=== PATIENT | female | born 1970 | race Caucasian/White ===

== ENCOUNTER 2017-01-09 21:45 | Inpatient (IN) | payer BC, OTHER ==
[~2017-01-09] VITALS: Ht 157.5 cm; Wt 78.0 kg
[~2017-01-09 21:45] MED LIST: IBUP-1050 PO
[2017-01-09] MEDS ORDERED: HYDROmorphone INJ 1 MG/ML SYR IV STA (22:40)
[2017-01-09] MEDS ORDERED: SODIUM CHLORIDE 0.9% 1000ML 1,000 ML IV STA (22:40)
[2017-01-09] MEDS ORDERED: ONDANSETRON INJ 2 MG/ML 2 ML VIAL IV STA (22:40)
[2017-01-09 22:51] LABS: BASO % 0.4 %; BASO ABS # 0.04 K/uL (0-0.2); COMPLETE YES; EOS % 2.4 %; HEMATOCRIT 37.4 % (37-47); IG% 0.2 %; LYMPH % 34.5 %; LYMPH ABS # 3.21 K/uL (1.2-3.4); MEAN CELL VOLUME 83.7 fL (80-100); MEAN CORPUSCULAR HEMOGLOBIN 27.1 pg (25-34); MEAN CORPUSCULAR HGB CONC 32.4 g/dl (32-36); MEAN PLATELET VOLUME 9.4 fL (7.4-10.4); MONO % 7.2 %; NEUT % 55.3 %; PLATELET COUNT 421 K/uL (130-400); RED BLOOD COUNT 4.47 M/uL (4.2-5.4)
[2017-01-09 23:04] LABS: ALT/SGPT 27 U/L (12-78); BLOOD UREA NITROGEN 9 mg/dl (7-18); BUN/CREATININE RATIO 11.3 (10-20); CALCIUM 8.9 mg/dl (8.5-10.1); CARBON DIOXIDE 25 mmol/L (21-32); CHLORIDE 109 mmol/L (98-107); CREATININE 0.82 mg/dl (0.60-1.20); GLUCOSE 107 mg/dl (70-99); POTASSIUM 3.5 mmol/L (3.5-5.1); SODIUM 141 mmol/L (136-145)
[2017-01-09 23:09] LABS: ALKALINE PHOSPHATASE 91 U/L (45-117); AST/SGOT 15 U/L (15-37)
[2017-01-10] VITALS (7 sets, daily range): BP systolic 122–130; BP diastolic 75–82; PULSE 73–98; TEMP 36.5–37; O2SAT 95–99; Ht 157.5 cm; Wt 78.0 kg
[2017-01-10] MEDS ORDERED: ONDANSETRON INJ 2 MG/ML 2 ML VIAL IV STA (00:18)
[2017-01-10] MEDS ORDERED: PROMETHAZINE HCL INJ 12.5 MG in SODIUM CHLORIDE 0.9% 50ML 50 ML IV STA (00:34)
[2017-01-10 03:49] LABS: URINE APPEARANCE CLEAR (CLEAR); URINE BILIRUBIN NEG (NEG); URINE COLOR YELLOW; URINE NITRITE NEG (NEG); URINE SPECIFIC GRAVITY 1.014 (1.000-1.030); UROBILINOGEN NEG (NEG); ZZUR CULT IF INDIC CLEAN CATCH NO
[2017-01-10 04:03] LABS: MANUAL MICROSCOPIC REQUIRED? NO; REVIEW REQ? NO
[2017-01-10] MEDS ORDERED: AMPICILLIN/SULBACTAM SOD INJ 3,000 MG in SODIUM CHLORIDE 0.9% 100ML 100 ML IV STA (05:06)
[2017-01-10 05:15] LABS: MAGNESIUM 1.7 mg/dl (1.8-2.4)
[2017-01-10] MEDS ORDERED: KETOROLAC TROMETHAMINE 30 MG/ML VIAL IV STA (05:43)
[2017-01-10] MEDS ORDERED: ONDANSETRON INJ 2 MG/ML 2 ML VIAL IV PRN ×2 (05:45→18:30)
[2017-01-10] MEDS ORDERED: ACETAMINOPHEN 325 MG TAB PO PRN (05:45)
[2017-01-10] MEDS ORDERED: KETOROLAC TROMETHAMINE 30 MG/ML VIAL IV PRN (05:45)
[2017-01-10] MEDS ORDERED: PROMETHAZINE HCL INJ 12.5 MG in SODIUM CHLORIDE 0.9% 50ML 50 ML IV PRN ×2 (05:45→18:30)
[2017-01-10] MEDS ORDERED: LORAZEPAM 2 MG/ML 1 ML VIAL IV PRN (05:45)
[2017-01-10] MEDS ORDERED: MoRPHine SULFATE 4 MG/ML 1 ML CARP\\VIAL IV PRN ×2 (05:45→20:00)
[2017-01-10] MEDS ORDERED: TRAMADOL HCL 50 MG TAB PO PRN (05:45)
[2017-01-10] MEDS ORDERED: AMPICILLIN/SULBACTAM CONSULT ACTIVE PRN ×2 (06:15)
[2017-01-10] MEDS ORDERED: LACTATED RINGER'S 1000ML 1,000 ML IV SCH (06:30)
[2017-01-10] MEDS ORDERED: MAGNESIUM SULFATE 1GM / D5W 1 GM in PREMIXED IN D5W 100 ML IV ONE (06:45)
[2017-01-10] MEDS ORDERED: LORAZEPAM INJ 0.5 MG in SYRINGE 0.75 ML IV PRN (06:45)
--- NOTE | 2017-01-10 07:05 | DIAGNOSTIC IMAGING REPORT ---
ULTRASOUND RIGHT UPPER QUADRANT ABDOMEN CLINICAL HISTORY: Right upper quadrant abdominal pain. Nausea. COMPARISON STUDY: Abdominal CT dated 06/26/2011. TECHNIQUE: Real-time, grayscale, and color flow sonography of the right upper quadrant of the abdomen was performed. Images are reviewed in the transverse and longitudinal planes. FINDINGS: Liver: The liver is enlarged, measuring over 20 cm in length. The liver demonstrates heterogeneously increased echotexture consistent with hepatic steatosis. There is no intrahepatic biliary ductal dilatation. The main portal vein is patent. Gallbladder: There are large shadowing calcified gallstones. Foci of adenomyomatosis are incidentally noted. The gallbladder is somewhat contracted. There is no significant gallbladder wall thickening. The gallbladder wall measures up to 5 mm, likely related to contraction. No pericholecystic fluid is identified. A sonographic Benitez's sign is reportedly absent. The common bile duct measures up to 0.4 cm in diameter. Pancreas: Visualized portions of the pancreatic head and body are normal in appearance. The splenic vein is patent. Right kidney: Survey images of the right kidney demonstrate normal size and echotexture. There is no hydronephrosis. Ascites: None. IMPRESSION: 1. Cholelithiasis without convincing sonographic evidence of acute cholecystitis. 2. Hepatomegaly and hepatic steatosis. Electronically signed by: Brian Pritchard M.D. 01/10/2017 7:04 AM Dictated Date/Time: 01/10/2017 7:02 AM
--- NOTE | 2017-01-10 07:30 | DIAGNOSTIC IMAGING REPORT ---
CT SCAN OF THE ABDOMEN AND PELVIS WITHOUT IV CONTRAST CLINICAL HISTORY: Upper abdominal pain. Nausea. Back pain. COMPARISON STUDY: Abdominal CT dated 06/26/2011. Abdominal ultrasound dated 01/10/2017. TECHNIQUE: CT scan of the abdomen and pelvis is performed from the lung bases to the proximal femora. Images are reviewed in the axial, sagittal, and coronal planes. IV contrast was not administered for this examination. Automated dose control exposure was utilized. A dose lowering technique was utilized adhering to the principles of ALARA. CT DOSE: 1067.13 mGy.cm FINDINGS: Lung bases: The heart is normal in size and without pericardial effusion. The lung bases are clear noting dependent atelectasis. There is a small hiatal hernia. Liver: The unenhanced liver is enlarged, measuring 23.6 cm in length. The liver demonstrates imaged attenuation consistent with hepatic steatosis. Fatty sparing is noted adjacent to the gallbladder fossa. There is no intrahepatic biliary ductal dilatation. Gallbladder: The gallbladder wall appears mildly thickened. No pericholecystic stranding or fluid is seen. Spleen: Normal in size and attenuation. A calcified splenic granuloma is incidentally noted. Pancreas: Unremarkable. Adrenal glands: Unremarkable. Kidneys: The unenhanced kidneys are normal in size and without hydronephrosis. There are no renal calculi identified. There is no evidence of contour deforming renal mass lesion. Abdominal vasculature: The abdominal aorta is normal in course and caliber. Bowel: The small bowel and colon are normal in course and caliber. There is mild colonic diverticulosis without CT evidence of acute diverticulitis. The proximal appendix is normal in appearance. The distal appendix appears ectatic and measures 13 mm in diameter. This demonstrates low attenuation centrally. No surrounding inflammatory change is seen. Peritoneum: There is no intraperitoneal free air or abdominal ascites. There is a fat-containing umbilical hernia. Lymphadenopathy: None. Pelvic viscera: The bladder, uterus, and adnexa are normal as visualized. Ovarian follicles are observed. Skeletal structures: No lytic or blastic lesions are seen. IMPRESSION: 1. The gallbladder wall appears thickened. Gallstones were seen by ultrasound. If there is clinical concern for acute cholecystitis then a nuclear hepatobiliary scan should be considered for further assessment. 2. Hepatomegaly and hepatic steatosis. 3. Mild colonic diverticulosis without CT evidence of acute diverticulitis. 4. The proximal appendix is normal in appearance. The distal appendix appears ectatic and measures up to 13 mm in diameter. There is no surrounding inflammation to indicate acute appendicitis. A mucocele of the appendix would be impossible to exclude. Surgical follow-up is recommended. 5. Additional findings as above. Electronically signed by: Brian Pritchard M.D. 01/10/2017 7:28 AM Dictated Date/Time: 01/10/2017 7:22 AM
--- NOTE | 2017-01-10 08:00 | HISTORY & PHYSICAL EXAMINATION ---
DATE OF ADMISSION: 01/10/2017 PRIMARY CARE DOCTOR: Dr. Austin CHIEF COMPLAINT: Abdominal pain. HISTORY OF PRESENT ILLNESS: History obtained from patient and records. Medical history is significant for hyperlipidemia. Recent confinement last 2011 for kidney stones. Last night, the patient had achy right-sided abdominal pain going to her chest and back with some nausea and some shortness of breath. No fever, no chills. No previous episodes. She just had spaghett for dinner. MEDICAL HISTORY: As above. SURGERIES: Shoulder surgery, gynecologic procedures, tonsillectomy, adenectomy and knee surgery. HOME MEDICATIONS: Include ibuprofen. ALLERGIES: TO SULFA AND CODEINE. FAMILY HISTORY: Heart disease and gallbladder disease. PERSONAL AND SOCIAL HISTORY: Nonsmoker. 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 REVIEW OF SYSTEMS: As per HPI, all other ROS negative. PHYSICAL EXAMINATION: VITAL SIGNS: Blood pressure was noted to be 125/77, pulse rate 84, RR 16, temperature 36.5 and sats 98 on room air. GENERAL: Slightly uncomfortable, in no respiratory distress and obese. She looks younger than stated age. SKIN: Normal color. HEENT: Eugenio Saenz palpebral conjunctivae. Dry mucosa. NECK: Short neck. LUNGS: Decreased breath sounds. HEART: RRR ABDOMEN: Right-sided upper and lower abdominal tenderness. EXTREMITIES: No edema. No tenderness. NEUROLOGIC: No gross focality. LABORATORIES: Hemoglobin was noted to be 12.1, hematocrit 7.4, white cell count 9.3 and platelets 421. Sodium 140, potassium 3.5, chloride 109, CO2 25, BUN 19 crea 0.8 glucose 107. LFTs, lipase were normal. D-dimer was normal. CT abdomen and pelvis initial read; thickened gallbladder, correlate for clinical cholecystitis; Dilated appendix secondary to volume averaging. Correlate for appendicitis. Trace pelvic fluid. ASSESSMENT: 1. Right-sided abdominal pain cholecystitis and/or appendicitis on initial CT read No sepsis. 2. Hyperlipidemia, not on medications. PLAN: GMF Analgesia Unasyn RE possible intra-abdominal infection Follow official CT results. Surgery consult RE abdominal pain, abnormal CT. N.p.o. until seen by surgery. DVT prophylaxis, Lovenox subQ. Full code. MTDD
--- NOTE | 2017-01-10 08:03 | DIAGNOSTIC IMAGING REPORT ---
CHEST ONE VIEW PORTABLE CLINICAL HISTORY: 46 years-old Female presenting with chest pain, back pain. TECHNIQUE: Portable semiupright AP view of the chest was obtained. COMPARISON: Correlation made to plain radiographs of the thoracic spine from 01/06/2013. FINDINGS: Cardiomediastinal silhouette normal. Mildly low lung volumes. Lungs and pleural spaces clear. Osseous structures and upper abdomen normal. IMPRESSION: 1. No acute cardiopulmonary disease. Electronically signed by: Kermit Reno M.D. 01/10/2017 8:02 AM Dictated Date/Time: 01/10/2017 8:00 AM
--- NOTE | 2017-01-10 08:07 | EMERGENCY ROOM VISIT NOTE ---
History First contact with patient: 22:24 Chief Complaint: CHEST PAIN Stated Complaint: CHOLECYSTITIS Nursing Triage Summary: Patient reports chest pain, back pain, and nausea for the past 1 hour. Denies cardiac history. History of Present Illness The patient is a 46 year old female who presents to the Emergency Room with complaints of chest pain, back pain and nausea. The patient states that she has been very slightly nauseous all day. She states that 30 minutes ago, she became very nauseous and then had sudden onset of excruciating pain across her upper abdomen, into her chest and into her back. She states that the pain is severe and radiates under the ribs. The pain in her back radiates up her entire spine. She rates her discomfort a 10/10. She has not taken any medications at home. The patient reports a history of kidney stones but is unsure if this feels similar. She denies fevers/chills, shortness of breath, vomiting, urinary symptoms or changes in bowel movements. Review of Systems A complete 10 point review of systems was reviewed with the patient with pertinent positives and negatives as per history of present illness. All else were negative. Past Medical/Surgical History Medical Problems: (1) ANXIETY STATE NOS (2) CALCULUS OF KIDNEY (3) CALCULUS OF URETER (4) Cholecystitis Social History Smoking Status: Never Smoker Alcohol Use: occasionally Marital Status: Housing Status: lives with family Occupation Status: employed, other Current/Historical Medications Scheduled PRN Ibuprofen (Advil), 400-600 MG PO Q6HR PRN PRN for Pain Physical Exam Vital Signs Date Time Temp Pulse Resp B/P (MAP) Pulse Ox O2 Delivery O2 Flow Rate FiO2 01/10/17 04:41 93 16 132/81 96 Room Air 01/10/17 03:42 36.5 90 16 136/79 95 Room Air 01/10/17 02:46 80 18 134/70 98 Room Air 01/10/17 00:12 68 22 136/89 98 Room Air 01/09/17 22:56 77 18 151/78 93 Room Air 01/09/17 22:08 87 01/09/17 22:05 98 Room Air 01/09/17 21:50 36.4 81 16 181/100 97 Room Air Pain Rating (0-10): 3.0 Physical Exam VITALS: Vitals are noted on the nurse's note and reviewed by myself. Vital signs stable. GENERAL: This is a 46-year-old female, in no acute distress, nondiaphoretic, well-developed well-nourished. MOUTH: Mucous membranes moist. NECK: Supple without nuchal rigidity. HEART: Regular rate and rhythm without murmurs gallops or rubs. LUNGS: Clear to auscultation bilaterally without wheezes, rales or rhonchi. ABDOMEN: Positive bowel sounds x 4. Soft, mild tenderness in the right upper quadrant and right middle abdomen. No guarding or rebound tenderness. NEURO: Patient was alert and oriented to person place and time. Medical Decision & Procedures ER Provider Diagnostic Interpretation: CT ABDOMEN & PELVIS: Gallbladder has a thick-walled appearance. No large calcified gallstones but possible cholelithiasis. Correlate for cholecystitis. Correlate with ultrasound, as indicated. No urolithiasis or hydronephrosis. The appendix is ectatic. Distal appendix is poorly evaluated secondary to volume averaging. Estimated caliber of the distal appendix about 9-10 mm. Correlate for any evidence of appendicitis. No significant periappendiceal inflammatory changes seen but volume averaging does limit evaluation. Trace pelvic free fluid. Diverticulitis. No diverticulitis. US GALLBLADDER: Cholelithiasis. Wall thickening gallbladder. Measures 5 mm. Adenomyomatosis with comet tail artifact. Liver prominent in size. Measures over 20 cm. Equivocal increased echogenicity of the liver but no steatosis is seen on recent CT. Normal caliber CBD. Radiologist: Vic Palencia MD Laboratory Results 01/09/17 22:05 Red Blood Count 4.47, Mean Corpuscular Volume 83.7, Mean Corpuscular Hemoglobin 27.1, Mean Corpuscular Hemoglobin Concent 32.4, Mean Platelet Volume 9.4, Neutrophils (%) (Auto) 55.3, Lymphocytes (%) (Auto) 34.5, Monocytes (%) (Auto) 7.2, Eosinophils (%) (Auto) 2.4, Basophils (%) (Auto) 0.4, Neutrophils # (Auto) 5.14, Lymphocytes # (Auto) 3.21, Monocytes # (Auto) 0.67, Eosinophils # (Auto) 0.22, Basophils # (Auto) 0.04 01/09/17 22:05 Test 01/09/17 22:05 01/10/17 01:40 01/10/17 02:52 White Blood Count 9.30 K/uL (4.8-10.8) Red Blood Count 4.47 M/uL (4.2-5.4) Hemoglobin 12.1 g/dL (12.0-16.0) Hematocrit 37.4 % (37-47) Mean Corpuscular Volume 83.7 fL (80-100) Mean Corpuscular Hemoglobin 27.1 pg (25-34) Mean Corpuscular Hemoglobin Concent 32.4 g/dl (32-36) Platelet Count 421 K/uL (130-400) Mean Platelet Volume 9.4 fL (7.4-10.4) Neutrophils (%) (Auto) 55.3 % Lymphocytes (%) (Auto) 34.5 % Monocytes (%) (Auto) 7.2 % Eosinophils (%) (Auto) 2.4 % Basophils (%) (Auto) 0.4 % Neutrophils # (Auto) 5.14 K/uL (1.4-6.5) Lymphocytes # (Auto) 3.21 K/uL (1.2-3.4) Monocytes # (Auto) 0.67 K/uL (0.11-0.59) Eosinophils # (Auto) 0.22 K/uL (0-0.5) Basophils # (Auto) 0.04 K/uL (0-0.2) RDW Standard Deviation 43.3 fL (36.4-46.3) RDW Coefficient of Variation 14.1 % (11.5-14.5) Immature Granulocyte % (Auto) 0.2 % Immature Granulocyte # (Auto) 0.02 K/uL (0.00-0.02) D-Dimer < 190 ug/L FEU (0-500) Anion Gap 7.0 mmol/L (3-11) Est Creatinine Clear Calc Drug Dose 82.0 ml/min Estimated GFR () 98.8 Estimated GFR (Non- 85.2 BUN/Creatinine Ratio 11.3 (10-20) Calcium Level 8.9 mg/dl (8.5-10.1) Total Bilirubin 0.3 mg/dl (0.2-1) Aspartate Amino Transf (AST/SGOT) 15 U/L (15-37) Alanine Aminotransferase (ALT/SGPT) 27 U/L (12-78) Alkaline Phosphatase 91 U/L (45-117) Total Protein 7.5 gm/dl (6.4-8.2) Albumin 3.7 gm/dl (3.4-5.0) Globulin 3.8 gm/dl (2.5-4.0) Albumin/Globulin Ratio 1.0 (0.9-2) Lipase 286 U/L (73-393) Urine Color YELLOW Urine Appearance CLEAR (CLEAR) Urine pH 5.0 (4.5-7.5) Urine Specific Mckinney 1.014 (1.000-1.030) Urine Protein NEG (NEG) Urine Glucose (UA) NEG (NEG) Urine Ketones NEG (NEG) Urine Occult Blood NEG (NEG) Urine Nitrite NEG (NEG) Urine Bilirubin NEG (NEG) Urine Urobilinogen NEG (NEG) Urine Leukocyte Esterase NEG (NEG) Urine Test NEG (NEG) Magnesium Level 1.7 mg/dl (1.8-2.4) Troponin I < 0.015 ng/ml (0-0.045) Medications Administered Medications (Trade) Dose Ordered Sig/Ian Route Start Time Stop Time Status Last Admin Dose Admin Sodium Chloride 1,000 ml @ 999 mls/hr Q1H1M STAT IV 01/09/17 22:40 01/09/17 23:40 DC 01/09/17 22:52 999 MLS/HR Ondansetron HCl (Zofran Inj) 4 mg NOW STAT IV 01/09/17 22:40 01/09/17 22:43 DC 01/09/17 22:52 4 MG Hydromorphone HCl (Dilaudid Inj) 1 mg NOW STAT IV 01/09/17 22:40 01/09/17 22:43 DC 01/09/17 22:52 1 MG Ondansetron HCl (Zofran Inj) 4 mg NOW STAT IV 01/10/17 00:18 01/10/17 00:19 DC 01/10/17 00:22 4 MG Promethazine HCl 12.5 mg/Sodium Chloride 50.5 ml @ 204 mls/hr NOW STAT IV 01/10/17 00:34 01/10/17 00:48 DC 01/10/17 00:51 204 MLS/HR Ampicillin Sodium/ Sulbactam Sodium 3000 mg/Sodium Chloride 108 ml @ 200 mls/hr NOW STAT IV 01/10/17 05:06 8/3/17 05:38 DC 01/10/17 05:26 200 MLS/HR ECG Rate (beats per minute): 91 Rhythm: normal sinus Findings: no acute ischemic change, no ectopy Change: no significant change ED Course The patient was evaluated as above. Labs were drawn and IV access was obtained. Patient was medicated with 1 mg Dilaudid IV, 4 mg Zofran and 1 L normal saline solution. Patient was complaining of persistent nausea and was medicated with an additional [address] was performed and read by statrad as above. Gallbladder Ultrasound was ordered. Patient was reevaluated and was still feeling nauseous. She was given 12.5 mg Phenergan IV. [facility]. They agreed to evaluate the patient for admission. Medical Decision Differential diagnosis includes cardiac disease, kidney stone, pulmonary embolism, cholecystitis, appendicitis, gastritis, colitis, among others. The patient is a 46-year-old female who presents today complaining of pain in her chest, upper abdomen and back. Patient was very uncomfortable on my initial examination and was given IV pain meds with improvement. Labs revealed no leukocytosis, anemia or concerning electrolyte abnormality. Kidney function is within normal limits. LFTs were within normal limits. Urinalysis was not suggestive of infection. Urine was negative. D-dimer was not elevated. Troponin [address] scan of the abdomen and pelvis for possible kidney stone was performed due to the patient's complaint of back pain and significant discomfort. This did not show any evidence of ureteral calculus , but did show findings suggestive of possible gallbladder disease. Of note, there was also dilation of the appendix but no periappendiceal stranding. Ultrasound of the gallbladder was then performed and did show gallbladder wall thickening. Given the patient's persistent nausea and tenderness in the right upper quadrant, do feel she needs to be admitted for further evaluation and surgical consultation. [facility] Medication Reconcilliation Current Medication List: was personally reviewed by me Blood Pressure Screening Patient's blood pressure: Elevated blood pressure Blood pressure disposition: Elevated BP felt to be situational Impression Primary Impression: Upper abdominal pain Departure Information Dispostion Admitted as an inpatient Condition FAIR Referrals No Doctor, Assigned (PCP) Forms HOME CARE DOCUMENTATION FORM, IMPORTANT VISIT INFORMATION Patient Instructions My [facility]
[2017-01-10] MEDS ORDERED: ENOXAPARIN 40 MG/0.4 ML SYR SQ SCH (09:00)
--- NOTE | 2017-01-10 10:31 | Surgery Consultation ---
Consultation Date of Consultation: Jan 10, 2017. Attending Physician: Lizandro Meraz M.D. Reason for Consultation: Right abdominal pain, abnormal CT scan (Coty Young PA-C) History of Present Illness Saskia is a 46 year-old female who presented to emergency department last evening with complaint of upper abdominal pain that began around 5:30 pm after dinner. States the pain was cramping in nature and then increased in severity. States she felt the pain start in her low back and radiate up her entire back and then into her chest under her ribs. States it felt like someone was sitting on her lower chest due to the pressure. She had spaghetti for dinner. She states she thought she had to go to restroom and then had sudden sweats. Never had anything like this before. Was concerned she was having a heart attack. Denies of any changes in her bowel habits, diarrhea, constipation, blood in stools, melena, or acholic stools. Last bowel movement was last night which was normal. Denies of any vomiting but did have associated nausea. Denies of any previous problems with gallbladder. Denies of any previous abdominal surgeries. No blood thinning agents. She had a CT scan of abdomen and pelvis which showed mild gallbladder wall thickening and distal appendix appeared ectactic dilated at 13 mm with no periappendiceal inflammation to suggest acute appendicitis She had an Ultrasound which showed large calcified gallstones, nonspecific gallbladder wall thickening, no pericholecystic fluid, contracted gallbladder with CBD measuring 4 mm. No sonographic evidence of Benitez's sign. Her labs showed normal WBC, LFTS and lipase (Coty Young PA-C) Past Medical/Surgical History Medical Problems: (1) Head injury Status: Acute (2) Trapezius strain Status: Acute (Coty Young PA-C) Social History Smoking Status: Never Smoker Marital Status: Housing Status: lives with family Occupation Status: employed, other (Coty Young PA-C) Allergies Coded Allergies: Codeine (Verified Allergy, Unknown, ., 01/09/17) Sulfa Antibiotics (Verified Allergy, Unknown, unknown, 01/09/17) Home Medications Scheduled PRN Ibuprofen (Advil), 400-600 MG PO Q6HR PRN PRN for Pain Current Inpatient Medications Current Inpatient Medications Medications (Trade) Dose Ordered Sig/Ian Route Start Time Stop Time Status Last Admin Dose Admin Lactated Ringer's 1,000 ml @ 75 mls/hr [id number] IV 01/10/17 06:30 02/09/17 06:29 01/10/17 06:43 75 MLS/HR Ketorolac Tromethamine (Toradol Inj) 30 mg Q6H PRN IV 01/10/17 05:45 01/15/17 05:44 Enoxaparin Sodium (Lovenox Inj) 40 mg Q24H SQ 01/10/17 09:00 02/09/17 08:59 Acetaminophen (Tylenol Tab) 650 mg Q4H PRN PO 01/10/17 05:45 02/09/17 05:44 Morphine Sulfate (MoRPHine SULFATE INJ) 4 mg Q3H PRN IV 01/10/17 05:45 01/24/17 05:44 Tramadol HCl (Ultram Tab) not relieved by tylenol @ Q6H PRN PO 01/10/17 05:45 02/09/17 05:44 Ondansetron HCl (Zofran Inj) 4 mg Q6H PRN IV 01/10/17 05:45 02/09/17 05:44 Promethazine HCl 12.5 mg/Sodium Chloride 50.5 ml @ 204 mls/hr Q6H PRN IV 01/10/17 05:45 02/09/17 05:44 Ampicillin Sodium/ Sulbactam Sodium (Consult) 1 ea UD PRN N/A 01/10/17 06:15 02/09/17 06:14 Lorazepam 0.5 mg/ Syringe 1 ml @ 1 mls/min Q4H PRN IV 01/10/17 06:45 02/09/17 06:44 (Coty Young ., PA-C) Review of Systems Constitutional: + sweats, No fever Cardiovascular: + chest pain, No palpitations Abdomen: + pain, + nausea, No vomiting, No diarrhea, No constipation, No GI bleeding Genitourinary - Female: No dysuria, No urinary frequency, No urinary urgency Hematologic / Lymphatic: No abnormal bleeding/bruising Integumentary: No rash (Coty Young, PA-C) Physical Exam Date Time Temp Pulse Resp B/P (MAP) Pulse Ox O2 Delivery O2 Flow Rate FiO2 01/10/17 08:23 36.6 77 16 129/75 (93) 97 Room Air 01/10/17 06:26 36.9 74 16 127/82 98 Room Air 01/10/17 05:56 36.5 84 16 125/77 98 01/10/17 05:30 84 16 125/77 98 Room Air 01/10/17 04:41 93 16 132/81 96 Room Air 01/10/17 03:42 36.5 90 16 136/79 95 Room Air 01/10/17 02:46 80 18 134/70 98 Room Air 01/10/17 00:12 68 22 136/89 98 Room Air 01/09/17 22:56 77 18 151/78 93 Room Air 01/09/17 22:08 87 01/09/17 22:05 98 Room Air 01/09/17 21:50 36.4 81 16 181/100 97 Room Air General Appearance: WD/WN, no apparent distress Head: normocephalic, atraumatic Eyes: sclerae normal ENT: hearing grossly normal Neck: trachea midline Respiratory/Chest: lungs clear, normal breath sounds, no respiratory distress, no accessory muscle use Cardiovascular: regular rate, rhythm, no murmur Abdomen/GI: normal bowel sounds, soft, no organomegaly, no pulsatile mass, + tenderness (In RUQ, negative benitez's sign, voluntary guarding of RUQ on deep palpation, no peritonitis or rigidity) Back: normal inspection Extremities/Musculoskelatal: normal inspection Neurologic/Psych: alert, oriented x 3 Skin: normal color, warm/dry, no rash (Coty Young ., PA-C) Laboratory Results Last 24 Hours Test 01/09/17 22:05 01/10/17 01:40 01/10/17 02:52 01/10/17 08:17 White Blood Count 9.30 K/uL Red Blood Count 4.47 M/uL Hemoglobin 12.1 g/dL Hematocrit 37.4 % Mean Corpuscular Volume 83.7 fL Mean Corpuscular Hemoglobin 27.1 pg Mean Corpuscular Hemoglobin Concent 32.4 g/dl Platelet Count 421 K/uL Mean Platelet Volume 9.4 fL Neutrophils (%) (Auto) 55.3 % Lymphocytes (%) (Auto) 34.5 % Monocytes (%) (Auto) 7.2 % Eosinophils (%) (Auto) 2.4 % Basophils (%) (Auto) 0.4 % Neutrophils # (Auto) 5.14 K/uL Lymphocytes # (Auto) 3.21 K/uL Monocytes # (Auto) 0.67 K/uL Eosinophils # (Auto) 0.22 K/uL Basophils # (Auto) 0.04 K/uL RDW Standard Deviation 43.3 fL RDW Coefficient of Variation 14.1 % Immature Granulocyte % (Auto) 0.2 % Immature Granulocyte # (Auto) 0.02 K/uL D-Dimer < 190 ug/L FEU Sodium Level 141 mmol/L Potassium Level 3.5 mmol/L Chloride Level 109 mmol/L Carbon Dioxide Level 25 mmol/L Anion Gap 7.0 mmol/L Blood Urea Nitrogen 9 mg/dl Creatinine 0.82 mg/dl Est Creatinine Clear Calc Drug Dose 82.0 ml/min Estimated GFR () 98.8 Estimated GFR (Non- 85.2 BUN/Creatinine Ratio 11.3 Random Glucose 107 mg/dl Calcium Level 8.9 mg/dl Total Bilirubin 0.3 mg/dl Aspartate Amino Transf (AST/SGOT) 15 U/L Alanine Aminotransferase (ALT/SGPT) 27 U/L Alkaline Phosphatase 91 U/L Troponin I < 0.015 ng/ml < 0.015 ng/ml Total Protein 7.5 gm/dl Albumin 3.7 gm/dl Globulin 3.8 gm/dl Albumin/Globulin Ratio 1.0 Lipase 286 U/L Urine Color YELLOW Urine Appearance CLEAR Urine pH 5.0 Urine Specific [place] 1.014 Urine Protein NEG Urine Glucose (UA) NEG Urine Ketones NEG Urine Occult Blood NEG Urine Nitrite NEG Urine Bilirubin NEG Urine Urobilinogen NEG Urine Leukocyte Esterase NEG Urine Test NEG Magnesium Level 1.7 mg/dl Prothrombin Time 11.0 SECONDS Prothromb Time International Ratio 1.0 CT SCAN OF THE ABDOMEN AND PELVIS WITHOUT IV CONTRAST CLINICAL HISTORY: Upper abdominal pain. Nausea. Back pain. COMPARISON STUDY: Abdominal CT dated 06/26/2011. Abdominal ultrasound dated 01/10/2017. TECHNIQUE: CT scan of the abdomen and pelvis is performed from the lung bases to the proximal femora. Images are reviewed in the axial, sagittal, and coronal planes. IV contrast was not administered for this examination. Automated dose control exposure was utilized. A dose lowering technique was utilized adhering to the principles of ALARA. CT DOSE: 1067.13 mGy.cm FINDINGS: Lung bases: The heart is normal in size and without pericardial effusion. The lung bases are clear noting dependent atelectasis. There is a small hiatal hernia. Liver: The unenhanced liver is enlarged, measuring 23.6 cm in length. The liver demonstrates imaged attenuation consistent with hepatic steatosis. Fatty sparing is noted adjacent to the gallbladder fossa. There is no intrahepatic biliary ductal dilatation. Gallbladder: The gallbladder wall appears mildly thickened. No pericholecystic stranding or fluid is seen. Spleen: Normal in size and attenuation. A calcified splenic granuloma is incidentally noted. Pancreas: Unremarkable. Adrenal glands: Unremarkable. Kidneys: The unenhanced kidneys are normal in size and without hydronephrosis. There are no renal calculi identified. There is no evidence of contour deforming renal mass lesion. Abdominal vasculature: The abdominal aorta is normal in course and caliber. Bowel: The small bowel and colon are normal in course and caliber. There is mild colonic diverticulosis without CT evidence of acute diverticulitis. The proximal appendix is normal in appearance. The distal appendix appears ectatic and measures 13 mm in diameter. This demonstrates low attenuation centrally. No surrounding inflammatory change is seen. Peritoneum: There is no intraperitoneal free air or abdominal ascites. There is a fat-containing umbilical hernia. Lymphadenopathy: None. Pelvic viscera: The bladder, uterus, and adnexa are normal as visualized. Ovarian follicles are observed. Skeletal structures: No lytic or blastic lesions are seen. IMPRESSION: 1. The gallbladder wall appears thickened. Gallstones were seen by ultrasound. If there is clinical concern for acute cholecystitis then a nuclear hepatobiliary scan should be considered for further assessment. 2. Hepatomegaly and hepatic steatosis. 3. Mild colonic diverticulosis without CT evidence of acute diverticulitis. 4. The proximal appendix is normal in appearance. The distal appendix appears ectatic and measures up to 13 mm in diameter. There is no surrounding inflammation to indicate acute appendicitis. A mucocele of the appendix would be impossible to exclude. Surgical follow-up is recommended. 5. Additional findings as above. ULTRASOUND RIGHT UPPER QUADRANT ABDOMEN CLINICAL HISTORY: Right upper quadrant abdominal pain. Nausea. COMPARISON STUDY: Abdominal CT dated 06/26/2011. TECHNIQUE: Real-time, grayscale, and color flow sonography of the right upper quadrant of the abdomen was performed. Images are reviewed in the transverse and longitudinal planes. FINDINGS: Liver: The liver is enlarged, measuring over 20 cm in length. The liver demonstrates heterogeneously increased echotexture consistent with hepatic steatosis. There is no intrahepatic biliary ductal dilatation. The main portal vein is patent. Gallbladder: There are large shadowing calcified gallstones. Foci of adenomyomatosis are incidentally noted. The gallbladder is somewhat contracted. There is no significant gallbladder wall thickening. The gallbladder wall measures up to 5 mm, likely related to contraction. No pericholecystic fluid is identified. A sonographic Benitez's sign is reportedly absent. The common bile duct measures up to 0.4 cm in diameter. Pancreas: Visualized portions of the pancreatic head and body are normal in appearance. The splenic vein is patent. Right kidney: Survey images of the right kidney demonstrate normal size and echotexture. There is no hydronephrosis. Ascites: None. IMPRESSION: 1. Cholelithiasis without convincing sonographic evidence of acute cholecystitis. 2. Hepatomegaly and hepatic steatosis. (Coty Young ., PA-C) Assessment & Plan 46 year-old female who presentd to ER with severe RUQ abdominal pain, back and chest pain that began suddenly last evening. Her symptoms are somewhat generalized however she did have fatty foods prior to her onset of pain and she continues to have RUQ tenderness on examination with evidence of gallstones and possible wall thickening on CT scan. Cholelithiasis - vitals stable - no leukocytosis - lfts and lipase within normal limits - CT scan showed thickened gallbladder, US showed stones however no evidence of acute cholecystitis - CT scan also showed distal appendix dilated at 13mm, Possible mucocele?? Plan: Given patients persistent RUQ abdominal pain and the findings on imaging, Dr. Gregory discussed laparoscopic cholecystectomy with appendectomy with patient. She would like to proceed. Informed of procedure and risks, informed consent obtained Keep patient NPO Continue IV fluids and IV pain management continue current medical management Dr. Gregory has seen and examined patient, agrees with above. (Coty Young ., PA-C) This patient has cholelithiasis and abdominal pain most of which has now resolved but she still has tenderness. I explained that she will need her gallbladder out at some point. She also has an abnormal appearing appendix without symptoms and no inflammatory change by CT. This is suspicious for a mucocele. I explained to her that we can do an appendectomy and cholecystectomy during the same procedure. I explained that would most likely be able to complete both procedures laparoscopically but that there is always a chance that we would need to convert to an open procedure. I explained the possible complications and answered her questions. She has signed a consent form. (Dakota Gregory M.D.)
--- NOTE | 2017-01-10 15:38 | Progress Note ---
Medicine Progress Note Date & Time of Visit: Jan 10, 2017 at 15:21. Subjective Pt was seen and examined Lying in bed with at bedside Pt said that she feels much better today she said that she does not have any abdominal pain she does not feel nauseated she wants to start on a diet since her pain is improved significantly denies any chest pain, palpitation, dizziness and SOB Objective Last 8 Hrs Date Time Temp Pulse Resp B/P (MAP) Pulse Ox O2 Delivery O2 Flow Rate FiO2 01/10/17 08:23 36.6 77 16 129/75 (93) 97 Room Air 01/10/17 08:15 Room Air Physical Exam: General- No acute distress Head- atraumatic Eyes- PERRL, EOMI ENT- oropharynx clear Neck- supple, no JVD Lungs- clear to auscultation Heart- regular rhythm; no murmur, Abdomen- normal bowel sounds, soft Extremities- no calf tenderness Neuro- alert, oriented x 3; PERRL, EOMI Skin- warm & dry Laboratory Results: Last 24 Hours Test 01/09/17 22:05 01/10/17 01:40 01/10/17 02:52 01/10/17 08:17 White Blood Count 9.30 K/uL Red Blood Count 4.47 M/uL Hemoglobin 12.1 g/dL Hematocrit 37.4 % Mean Corpuscular Volume 83.7 fL Mean Corpuscular Hemoglobin 27.1 pg Mean Corpuscular Hemoglobin Concent 32.4 g/dl Platelet Count 421 K/uL Mean Platelet Volume 9.4 fL Neutrophils (%) (Auto) 55.3 % Lymphocytes (%) (Auto) 34.5 % Monocytes (%) (Auto) 7.2 % Eosinophils (%) (Auto) 2.4 % Basophils (%) (Auto) 0.4 % Neutrophils # (Auto) 5.14 K/uL Lymphocytes # (Auto) 3.21 K/uL Monocytes # (Auto) 0.67 K/uL Eosinophils # (Auto) 0.22 K/uL Basophils # (Auto) 0.04 K/uL RDW Standard Deviation 43.3 fL RDW Coefficient of Variation 14.1 % Immature Granulocyte % (Auto) 0.2 % Immature Granulocyte # (Auto) 0.02 K/uL D-Dimer < 190 ug/L FEU Sodium Level 141 mmol/L Potassium Level 3.5 mmol/L Chloride Level 109 mmol/L Carbon Dioxide Level 25 mmol/L Anion Gap 7.0 mmol/L Blood Urea Nitrogen 9 mg/dl Creatinine 0.82 mg/dl Est Creatinine Clear Calc Drug Dose 82.0 ml/min Estimated GFR () 98.8 Estimated GFR (Non- 85.2 BUN/Creatinine Ratio 11.3 Random Glucose 107 mg/dl Calcium Level 8.9 mg/dl Total Bilirubin 0.3 mg/dl Aspartate Amino Transf (AST/SGOT) 15 U/L Alanine Aminotransferase (ALT/SGPT) 27 U/L Alkaline Phosphatase 91 U/L Troponin I < 0.015 ng/ml < 0.015 ng/ml Total Protein 7.5 gm/dl Albumin 3.7 gm/dl Globulin 3.8 gm/dl Albumin/Globulin Ratio 1.0 Lipase 286 U/L Urine Color YELLOW Urine Appearance CLEAR Urine pH 5.0 Urine Specific [place] 1.014 Urine Protein NEG Urine Glucose (UA) NEG Urine Ketones NEG Urine Occult Blood NEG Urine Nitrite NEG Urine Bilirubin NEG Urine Urobilinogen NEG Urine Leukocyte Esterase NEG Urine Test NEG Magnesium Level 1.7 mg/dl Prothrombin Time 11.0 SECONDS Prothromb Time International Ratio 1.0 Assessment & Plan Right sided abdominal pain CT abdomen showed gallbladder wall appears thickened. Gallstones were seen in ultrasound Pain improved Surgery on board Plan to go to OR for laparoscopic cholecystectomy and appendectomy today Continue IV unasyn for now Keep NPO pain control IVF Low Magnesium Mg replaced continue monitor mg level DVT px Hold lovenox due to plan to go to OR Will put on SCDs CODE STATUS FULL CODE Consultants: Surgery Current Inpatient Medications: Current Inpatient Medications Medications (Trade) Dose Ordered Sig/Ian Route Start Time Stop Time Status Last Admin Dose Admin Lactated Ringer's 1,000 ml @ 75 mls/hr [id number] IV 01/10/17 06:30 02/09/17 06:29 01/10/17 06:43 75 MLS/HR Ketorolac Tromethamine (Toradol Inj) 30 mg Q6H PRN IV 01/10/17 05:45 01/15/17 05:44 Enoxaparin Sodium (Lovenox Inj) 40 mg Q24H SQ 01/10/17 09:00 02/09/17 08:59 Future Hold Acetaminophen (Tylenol Tab) 650 mg Q4H PRN PO 01/10/17 05:45 02/09/17 05:44 Morphine Sulfate (MoRPHine SULFATE INJ) 4 mg Q3H PRN IV 01/10/17 05:45 01/24/17 05:44 Tramadol HCl (Ultram Tab) not relieved by tylenol @ Q6H PRN PO 01/10/17 05:45 02/09/17 05:44 Ondansetron HCl (Zofran Inj) 4 mg Q6H PRN IV 01/10/17 05:45 02/09/17 05:44 Promethazine HCl 12.5 mg/Sodium Chloride 50.5 ml @ 204 mls/hr Q6H PRN IV 01/10/17 05:45 02/09/17 05:44 Ampicillin Sodium/ Sulbactam Sodium (Consult) 1 ea UD PRN N/A 01/10/17 06:15 02/09/17 06:14 Lorazepam 0.5 mg/ Syringe 1 ml @ 1 mls/min Q4H PRN IV 01/10/17 06:45 02/09/17 06:44
[2017-01-10] MEDS: AMPICILLIN/SULBACTAM SOD INJ 3,000 MG in SODIUM CHLORIDE 0.9% 100ML 100 ML IV SCH ×2 (16:00→23:05)
[2017-01-10] MEDS ORDERED: HEPARIN SOD (PORCINE) 1000 UNIT/ML 10 ML VIAL ONE (17:49)
[2017-01-10] MEDS ORDERED: BUPIVACAINE 0.5 % 5 MG/1 ML MPF 30ML VIAL ONE (17:49)
[2017-01-10] MEDS ORDERED: CONRAY 60% 50 ML VIAL ONE (17:49)
[2017-01-10] MEDS ORDERED: CEFAZOLIN SOD 1 GM VIAL ONE (17:49)
[2017-01-10] MEDS ORDERED: GLYCOPYRROLATE INJ 0.2 MG/ML VIAL ONE (17:51)
[2017-01-10] MEDS ORDERED: ROCURONIUM BROMIDE 10 MG/ML 5 ML VIAL ONE (17:51)
[2017-01-10] MEDS ORDERED: DEXAMETHASONE SOD INJ 4 MG/ML VIAL ONE (17:51)
[2017-01-10] MEDS ORDERED: ONDANSETRON INJ 2 MG/ML 2 ML VIAL ONE (17:51)
[2017-01-10] MEDS ORDERED: NEOSTIGMINE METHYLSULFATE 5 MG/5 ML SYR ONE (17:51)
[2017-01-10] MEDS ORDERED: PROPOFOL IV EMULSION 10 MG/ML 20 ML VIAL IV ONE (17:51)
[2017-01-10] MEDS ORDERED: LIDOCAINE HCL 2% 2 ML VIAL (20MG/ML) ONE (17:51)
[2017-01-10] MEDS ORDERED: SCOPOLAMINE 1.5 MG TDSY TD ONE (17:51)
[2017-01-10] MEDS ORDERED: MIDAZOLAM HCL 1 MG/ML 2ML VIAL ONE (17:52)
[2017-01-10] MEDS ORDERED: FENTANYL CITRATE INJ 50 MCG/1 ML 2 ML VIAL ONE ×2 (17:52→18:42)
[2017-01-10] MEDS ORDERED: KETOROLAC TROMETHAMINE 30 MG/ML VIAL IV. PRN ×2 (18:30→20:30)
[2017-01-10] MEDS ORDERED: FLUMAZENIL 0.1 MG/1 ML 10 ML VIAL IV PRN (18:30)
[2017-01-10] MEDS ORDERED: ATROPINE SULFATE 0.1 MG/ML 5ML SYR IV PRN (18:30)
[2017-01-10] MEDS ORDERED: EpHEDrine SULFATE INJ 50 MG/ML AMP IV PRN (18:30)
[2017-01-10] MEDS ORDERED: NALOXONE HCL 0.4 MG/1 ML VIAL/CARP IV PRN (18:30)
--- NOTE | 2017-01-10 19:54 | [facility] Post Operative Brief Note ---
Immediate Operative Summary Operative Date Jan 10, 2017. Pre-Operative Diagnosis Cholelithiasis, Cholecystitis, Abnormal Appendix Post-Operative Diagnosis Cholelithiasis, Cholecystitis, Abnormal Appendix Procedure(s) Performed Laparoscopic Cholecystectomy, Laparoscopic Appendectomy Surgeon Dr. Gregory Chemical Pumper Surgeon(s) None Estimated Blood Loss 10 cc Findings See dictation Specimens A. Gallbladder and Contents B. Appendix Drains None Anesthesia General Complication(s) None Disposition Recovery Room / PACU
[2017-01-10] MEDS: LABETALOL HCL IV 5 MG/ML 20ML IV PRN ×3 (20:00→20:10)
[2017-01-10] MEDS ORDERED: ESMOLOL HCL 10 MG/ML 10 ML VIAL ONE (20:00)
[2017-01-10] MEDS ORDERED: OXYCODONE/ACETAMINOPHEN 5-325 TAB PO PRN (20:00)
[2017-01-10] MEDS: FENTANYL CITRATE INJ 50 MCG/1 ML 2 ML VIAL IV PRN ×2 (20:11→20:16)
[2017-01-10] MEDS ORDERED: NURSING VERBAL MED ORDER ONE ×2 (20:30→22:00)
--- NOTE | 2017-01-10 20:54 | Anesthesiology Progress Note ---
Anesthesia Post Op Note Date & Time Jan 10, 2017 at 20:54 Vital Signs Pain Intensity: 2 Vital Signs Past 12 Hours Date Time Temp Pulse Resp B/P (MAP) Pulse Ox O2 Delivery O2 Flow Rate FiO2 01/10/17 20:45 36.6 71 16 140/97 97 Nasal Cannula 2 01/10/17 20:35 66 14 153/88 97 Nasal Cannula 2 01/10/17 20:25 67 14 161/106 100 Nasal Cannula 2 01/10/17 20:15 67 14 187/106 98 Oxymask 10 01/10/17 20:05 71 14 187/104 98 Oxymask 10 01/10/17 19:55 37.1 87 14 183/106 99 Oxymask 10 01/10/17 17:47 36.8 16 133/86 (102) 97 Room Air 01/10/17 16:00 Room Air 01/10/17 15:25 36.8 81 16 124/79 (94) 95 Room Air Notes Mental Status: alert / awake / arousable, participated in evaluation Pt Amnestic to Procedure: Yes Nausea / Vomiting: adequately controlled Pain: adequately controlled Airway Patency, RR, SpO2: stable & adequate BP & HR: stable & adequate Hydration State: stable & adequate Anesthetic Complications: no major complications apparent
[2017-01-10] MEDS ORDERED: LABETALOL HCL IV 5 MG/ML 20ML IV ONE (21:00)
--- NOTE | 2017-01-10 23:32 | OPERATIVE REPORT ---
DATE OF OPERATION: 01/10/2017 PREOPERATIVE DIAGNOSIS: Cholelithiasis, cholecystitis, abnormal appendix. POSTOPERATIVE DIAGNOSIS: Same. PROCEDURE: Laparoscopic cholecystectomy and laparoscopic appendectomy. SURGEON: Dakota Gregory MD. FINDINGS: The gallbladder had multiple stones within its lumen. The cystic duct was long, but not dilated. The gallbladder did not appear to have a thickened wall. The liver was of normal size and contour. The appendix, in its distal 1-2 cm, was dilated and firm. There was no evidence of inflammatory response around it. There was no evidence of abscess or perforation. TECHNIQUE: The patient was given a general anesthetic and the area was prepped and draped in the usual sterile fashion. Transverse incision was made below the umbilicus, carried down through the subcutaneous tissue to the fascia which was grasped with 2 Nahid clamps and incised between. The peritoneum was identified, incised, and the introducers were placed bluntly. The abdomen was then insufflated to a pressure of 15 mmHg of carbon dioxide. The upper midline, mid clavicular and anterior axillary introducers were placed under direct vision through small skin incisions. Traction was placed on the gallbladder and the peritoneum was opened on the lateral side of the infundibulum and peeled down towards the common bile duct. The infundibulum was then dissected away from the liver on that lateral side. I then worked over the anterior surface of the infundibulum and neck and into the triangle of Calot, which was opened. The infundibulum was dissected away from the liver on the medial side allowing for better mobility. I then was able to identify the cystic duct and peel the connective tissue away from the lateral and medial sides, allowing me to establish a plane behind it and carefully identify the cystic duct gallbladder junction. Three clips were placed on the proximal cystic duct, 1 near the gallbladder and it was divided. Further dissection was then carried out and posterior to that were 2 tubular structures that were most likely 2 branches of the artery that were each isolated, clamped twice proximally and once near the gallbladder and it was divided. The gallbladder was then peeled off the liver bed using electrocautery. It was brought out through the upper midline incision within a bag, but I had to open the gallbladder and crush the stones in order to extract it within the bag when that was accomplished. That introducer was replaced and the liver edge was elevated. The subdiaphragmatic and subhepatic spaces were irrigated and the irrigation was removed. The gallbladder bed of the liver was inspected for bleeding and none was seen. The previously placed clips were intact. Attention was then turned to the appendectomy. The appendix was easily identified after rolling the cecum medially. It was elevated and I was able to easily establish a plane between the mesoappendix and the appendix at its base. The base was normal. The mesoappendix was divided with 2 firings of the Endo-HE. That allowed me to confirm that I was at the base of the appendix and the appendix was amputated using the Endo-HE. The appendix was placed into an Endobag and brought out through the umbilical incision with ease. That introducer was replaced and the right lower quadrant was irrigated and irrigation removed. The staple lines were inspected and there was no bleeding. Any irrigation in the pelvis was removed and the right upper quadrant was again inspected and any irrigation there was removed. The gallbladder bed of the liver was again inspected and there was no bleeding. The gas was allowed to escape and the introducers were removed. The fascia of the umbilical and upper midline introducer sites was closed with interrupted 0 Vicryl and the skin of all the incisions was closed with 4-0 Monocryl in either an interrupted or in a subcuticular fashion. The skin was anesthetized with 0.5% Marcaine. The skin was cleansed, dried, benzoin placed And Steri-Strips applied. The estimated blood loss was 10 mL. Sponge, needle and instrument counts were correct prior to closure. The patient tolerated the surgical procedure without complication and was transferred to recovery. I attest to the content of the Intraoperative Record and any orders documented therein. Any exception s are noted below.
[2017-01-10] MEDS: CHECK SCOPOLAMINE PATCH PLACEMENT SCH (23:52)
[2017-01-11 00:15] VITALS: BP 120/70; PULSE 97; TEMP 36.7; O2SAT 95
[2017-01-11] MEDS ORDERED: HYDROmorphone INJ 0.5 MG/0.5 ML SYR IV PRN (00:30)
[2017-01-11 03:17] VITALS: BP 116/64; PULSE 104; TEMP 37.1; O2SAT 95
[2017-01-11] MEDS: AMPICILLIN/SULBACTAM SOD INJ 3,000 MG in SODIUM CHLORIDE 0.9% 100ML 100 ML IV SCH ×4 (03:48→22:12)
[2017-01-11] MEDS: HYDROmorphone INJ 0.5 MG/0.5 ML SYR IV PRN ×3 (06:23→16:12)
[2017-01-11 06:47] LABS: BASO % 0.1 %; BASO ABS # 0.01 K/uL (0-0.2); COMPLETE YES; HEMATOCRIT 34.6 % (37-47); IG% 0.3 %; LYMPH % 8.1 %; LYMPH ABS # 0.96 K/uL (1.2-3.4); MEAN CELL VOLUME 83.8 fL (80-100); MEAN CORPUSCULAR HEMOGLOBIN 27.1 pg (25-34); MEAN CORPUSCULAR HGB CONC 32.4 g/dl (32-36); MEAN PLATELET VOLUME 9.2 fL (7.4-10.4); MONO % 3.7 %; NEUT % 87.8 %; PLATELET COUNT 343 K/uL (130-400); RED BLOOD COUNT 4.13 M/uL (4.2-5.4); WHITE BLOOD COUNT 11.86 K/uL (4.8-10.8)
[2017-01-11 07:28] LABS: BUN/CREATININE RATIO 7.5 (10-20); CALCIUM 8.6 mg/dl (8.5-10.1); CREATININE 0.91 mg/dl (0.60-1.20); POTASSIUM 4.2 mmol/L (3.5-5.1)
--- NOTE | 2017-01-11 07:29 | Surgery Progress Note ---
Surgery Progress Note Date of Service Jan 11, 2017. Subjective Post OP Day: 1 + pain controlled, + diet (Had a few crackers last night), No bowel movement, No nausea, No vomiting Objective Vital Signs: Date Time Temp Pulse Resp B/P (MAP) Pulse Ox O2 Delivery O2 Flow Rate FiO2 01/11/17 03:17 37.1 104 16 116/64 (81) 95 Room Air 01/11/17 00:15 36.7 97 16 120/70 (87) 95 Room Air 01/10/17 23:55 Room Air 01/10/17 23:18 36.5 98 16 122/75 (91) 99 Nasal Cannula 1.5 01/10/17 22:14 37.0 84 16 125/77 (93) 99 Nasal Cannula 2.0 01/10/17 21:43 36.8 79 16 129/79 (96) 99 Nasal Cannula 2.0 01/10/17 21:15 37.0 73 16 130/82 (98) 98 Nasal Cannula 2.0 01/10/17 21:15 Nasal Cannula 2.0 01/10/17 21:15 Nasal Cannula 2.0 01/10/17 20:45 36.6 71 16 140/97 97 Nasal Cannula 2 01/10/17 20:35 66 14 153/88 97 Nasal Cannula 2 01/10/17 20:25 67 14 161/106 100 Nasal Cannula 2 01/10/17 20:15 67 14 187/106 98 Oxymask 10 01/10/17 20:05 71 14 187/104 98 Oxymask 10 01/10/17 19:55 37.1 87 14 183/106 99 Oxymask 10 01/10/17 17:47 36.8 16 133/86 (102) 97 Room Air 01/10/17 16:00 Room Air 01/10/17 15:25 36.8 81 16 124/79 (94) 95 Room Air 01/10/17 08:23 36.6 77 16 129/75 (93) 97 Room Air 01/10/17 08:15 Room Air Abdomen: normal bowel sounds, non distended, soft, + tenderness (Incisional mostly) Incision(s): clean, dry, intact, no erythema, no drainage Laboratory Results: Results Past 24 Hours Test 01/10/17 08:17 01/11/17 06:17 Range/Units Prothrombin Time 11.0 9.0-12.0 SECONDS Prothromb Time International Ratio 1.0 0.9-1.1 White Blood Count 11.86 4.8-10.8 K/uL Red Blood Count 4.13 4.2-5.4 M/uL Hemoglobin 11.2 12.0-16.0 g/dL Hematocrit 34.6 37-47 % Mean Corpuscular Volume 83.8 80-100 fL Mean Corpuscular Hemoglobin 27.1 25-34 pg Mean Corpuscular Hemoglobin Concent 32.4 32-36 g/dl Platelet Count 343 130-400 K/uL Mean Platelet Volume 9.2 7.4-10.4 fL Neutrophils (%) (Auto) 87.8 % Lymphocytes (%) (Auto) 8.1 % Monocytes (%) (Auto) 3.7 % Eosinophils (%) (Auto) 0.0 % Basophils (%) (Auto) 0.1 % Neutrophils # (Auto) 10.41 1.4-6.5 K/uL Lymphocytes # (Auto) 0.96 1.2-3.4 K/uL Monocytes # (Auto) 0.44 0.11-0.59 K/uL Eosinophils # (Auto) 0.00 0-0.5 K/uL Basophils # (Auto) 0.01 0-0.2 K/uL RDW Standard Deviation 45.0 36.4-46.3 fL RDW Coefficient of Variation 14.7 11.5-14.5 % Immature Granulocyte % (Auto) 0.3 % Immature Granulocyte # (Auto) 0.04 0.00-0.02 K/uL Assessment & Plan S/P laparoscopic appendectomy and cholecystectomy Encourage eating Encouraged ambulation If tolerates diet and is having less pain can D/C to home later today
[2017-01-11 07:42] VITALS: BP 117/68; PULSE 91; TEMP 36.6; O2SAT 93
[2017-01-11] MEDS: CHECK SCOPOLAMINE PATCH PLACEMENT SCH ×2 (07:55→16:12)
--- NOTE | 2017-01-11 10:36 | Discharge Instructions ---
Discharge Instructions Date of Service Jan 11, 2017. Admission Reason for Admission: Cholecystitis Discharge Discharge Diagnosis / Problem: Same Discharge Goals Goal(s): Decrease discomfort, Improve function Activity Recommendations Activity Limitations: as noted below -You have Steri-strips (small white bandaids) in place, which will fall off on their own over time. If there are larger dressings over these, you may remove them in 24 hours. -After dressings are removed, you may shower. Do not scrub over the incisions - just wash gently with warm, soapy water. Do not soak, as in a bathtub or swimming pool -No lifting more than 20 lbs for 2 to 4 weeks -Do not drive until you are no longer taking narcotic pain medications and are completely pain free . Instructions / Follow-Up Instructions / Follow-Up -Please call to make a follow up appointment with Dr. Gregory in approximately 2 weeks Current Hospital Diet Patient's current hospital diet: Regular Diet Discharge Diet Recommended Diet: Regular Diet Procedures Procedures Performed: Laparoscopic Cholecystectomy, Laparoscopic Appendectomy Pending Studies Studies pending at discharge: yes List of pending studies: Gallbladder pathology - will be discussed at follow up appointment Medical Emergencies . Who to Call and When: Medical Emergencies: If at any time you feel your situation is an emergency, please call 911 immediately. . Non-Emergent Contact Non-Emergency issues call your: Primary Care Provider, Surgeon Call Non-Emergent contact if: temperature is above 101, your pain is not controlled, your pain is worsening, wound has increased drainage, wound has increased redness, wound has increased pain . "Provider Documentation" section prepared by Kavitha Lyles. . VTE Core Measure Inpt VTE Proph given/why not?: Enoxaparin (Lovenox)SQ, SCD's [place] Drug Monitoring Program Search Results: patient reviewed within database, no issues identified
--- NOTE | 2017-01-11 13:39 | Anesthesiology Progress Note ---
Anesthesia Post Op Note Date & Time Jan 11, 2017 at 13:36 Vital Signs Pain Intensity: 4.0 (4) Vital Signs Past 12 Hours Date Time Temp Pulse Resp B/P (MAP) Pulse Ox O2 Delivery O2 Flow Rate FiO2 01/11/17 08:15 Room Air 01/11/17 07:42 36.6 91 18 117/68 (84) 93 Room Air 01/11/17 03:17 37.1 104 16 116/64 (81) 95 Room Air Notes Mental Status: alert / awake / arousable, participated in evaluation Pt Amnestic to Procedure: Yes Nausea / Vomiting: see Notes Pain: adequately controlled Airway Patency, RR, SpO2: stable & adequate BP & HR: stable & adequate Hydration State: stable & adequate Anesthetic Complications: no major complications apparent patient complained of severe PONV. Reported having to have TIVA as anesthetic as it had controlled it in the past. She could not remember the name of it and did not get it yesterday. N/V had been improved after multiple medications given postoperatively. Demands TIVA in future.
[2017-01-11] MEDS ORDERED: HYDR2TAB48 PO (14:58)
--- NOTE | 2017-01-11 15:00 | Progress Note ---
Progress Note Date of Service Jan 11, 2017. Progress Note Evaluated patient at 2:30 pm Having moderate pain, not feeling great, would like to stay one more evening for pain control. Tolerated breakfast and lunch. No nausea or vomiting. Will have discharge instructions and prescription ready for discharge home tomorrow Dr. Mata covering this weekend
[2017-01-11 15:04] VITALS: BP 116/64; PULSE 86; TEMP 37.3; O2SAT 96
[2017-01-11] MEDS: ACETAMINOPHEN 500 MG TAB PO SCH ×2 (17:52→22:20)
[2017-01-11] MEDS: TRAMADOL HCL 50 MG TAB PO SCH ×2 (17:52→22:20)
--- NOTE | 2017-01-11 21:45 | Progress Note ---
Medicine Progress Note Date & Time of Visit: Jan 11, 2017 at 15:32. Subjective 46 yo F admitted with severe upper abdominal pain s/p lap dayanara and lap appy on 01/10/17 --denies nausea -reports pain and worsened distention -tolerating PO without an issue -asking to not send her home today because her pain is bad -denies CP, SOB or other symptoms at this time. Objective Last 8 Hrs Date Time Temp Pulse Resp B/P (MAP) Pulse Ox O2 Delivery O2 Flow Rate FiO2 01/11/17 15:04 37.3 86 16 116/64 (81) 96 Room Air 01/11/17 08:15 Room Air 01/11/17 07:42 36.6 91 18 117/68 (84) 93 Room Air Physical Exam: GEN: WNWD, in mild distress, alert and appropriate HEENT: NC/AT, PERRL, normal sclerae, MMM CARDIO: reg rate, S1/2 heard without m/g/r LUNGS: CTA bilaterally, no crackles, rales or wheezes, good diaphragmatic excursion ABD: soft, TTP in RLQ, incisions intact and closed with steristrips in place, no drainage, some expected bruising present. Non-distended, +BS EXTREMITY: RP and DP palpable 2+ bilat, no LE swelling or edema, extremities are warm and well-perfused NEURO: CN 2-12 grossly intact, sensation intact throughout MUSC: 5/5 strength throughout, no focal deficits SKIN: warm and dry and wounds as above. Laboratory Results: 01/11/17 06:17 Red Blood Count 4.13, Mean Corpuscular Volume 83.8, Mean Corpuscular Hemoglobin 27.1, Mean Corpuscular Hemoglobin Concent 32.4, Mean Platelet Volume 9.2, Neutrophils (%) (Auto) 87.8, Lymphocytes (%) (Auto) 8.1, Monocytes (%) (Auto) 3.7, Eosinophils (%) (Auto) 0.0, Basophils (%) (Auto) 0.1, Neutrophils # (Auto) 10.41, Lymphocytes # (Auto) 0.96, Monocytes # (Auto) 0.44, Eosinophils # (Auto) 0.00, Basophils # (Auto) 0.01 01/11/17 06:17 Test 01/09/17 22:05 01/10/17 01:40 01/10/17 02:52 01/10/17 08:17 D-Dimer < 190 ug/L FEU (0-500) Total Bilirubin 0.3 mg/dl (0.2-1) Aspartate Amino Transf (AST/SGOT) 15 U/L (15-37) Alanine Aminotransferase (ALT/SGPT) 27 U/L (12-78) Alkaline Phosphatase 91 U/L (45-117) Total Protein 7.5 gm/dl (6.4-8.2) Albumin 3.7 gm/dl (3.4-5.0) Globulin 3.8 gm/dl (2.5-4.0) Albumin/Globulin Ratio 1.0 (0.9-2) Lipase 286 U/L (73-393) Urine Color YELLOW Urine Appearance CLEAR (CLEAR) Urine pH 5.0 (4.5-7.5) Urine Specific [place] 1.014 (1.000-1.030) Urine Protein NEG (NEG) Urine Glucose (UA) NEG (NEG) Urine Ketones NEG (NEG) Urine Occult Blood NEG (NEG) Urine Nitrite NEG (NEG) Urine Bilirubin NEG (NEG) Urine Urobilinogen NEG (NEG) Urine Leukocyte Esterase NEG (NEG) Urine Test NEG (NEG) Troponin I < 0.015 ng/ml (0-0.045) Prothrombin Time 11.0 SECONDS (9.0-12.0) Prothromb Time International Ratio 1.0 (0.9-1.1) Test 01/11/17 06:17 White Blood Count 11.86 K/uL (4.8-10.8) Red Blood Count 4.13 M/uL (4.2-5.4) Hemoglobin 11.2 g/dL (12.0-16.0) Hematocrit 34.6 % (37-47) Mean Corpuscular Volume 83.8 fL (80-100) Mean Corpuscular Hemoglobin 27.1 pg (25-34) Mean Corpuscular Hemoglobin Concent 32.4 g/dl (32-36) Platelet Count 343 K/uL (130-400) Mean Platelet Volume 9.2 fL (7.4-10.4) Neutrophils (%) (Auto) 87.8 % Lymphocytes (%) (Auto) 8.1 % Monocytes (%) (Auto) 3.7 % Eosinophils (%) (Auto) 0.0 % Basophils (%) (Auto) 0.1 % Neutrophils # (Auto) 10.41 K/uL (1.4-6.5) Lymphocytes # (Auto) 0.96 K/uL (1.2-3.4) Monocytes # (Auto) 0.44 K/uL (0.11-0.59) Eosinophils # (Auto) 0.00 K/uL (0-0.5) Basophils # (Auto) 0.01 K/uL (0-0.2) RDW Standard Deviation 45.0 fL (36.4-46.3) RDW Coefficient of Variation 14.7 % (11.5-14.5) Immature Granulocyte % (Auto) 0.3 % Immature Granulocyte # (Auto) 0.04 K/uL (0.00-0.02) Anion Gap 9.0 mmol/L (3-11) Est Creatinine Clear Calc Drug Dose 73.9 ml/min Estimated GFR () 87.1 Estimated GFR (Non- 75.1 BUN/Creatinine Ratio 7.5 (10-20) Calcium Level 8.6 mg/dl (8.5-10.1) Magnesium Level 2.0 mg/dl (1.8-2.4) Last 24 Hours Test 01/11/17 06:17 White Blood Count 11.86 K/uL Red Blood Count 4.13 M/uL Hemoglobin 11.2 g/dL Hematocrit 34.6 % Mean Corpuscular Volume 83.8 fL Mean Corpuscular Hemoglobin 27.1 pg Mean Corpuscular Hemoglobin Concent 32.4 g/dl Platelet Count 343 K/uL Mean Platelet Volume 9.2 fL Neutrophils (%) (Auto) 87.8 % Lymphocytes (%) (Auto) 8.1 % Monocytes (%) (Auto) 3.7 % Eosinophils (%) (Auto) 0.0 % Basophils (%) (Auto) 0.1 % Neutrophils # (Auto) 10.41 K/uL Lymphocytes # (Auto) 0.96 K/uL Monocytes # (Auto) 0.44 K/uL Eosinophils # (Auto) 0.00 K/uL Basophils # (Auto) 0.01 K/uL RDW Standard Deviation 45.0 fL RDW Coefficient of Variation 14.7 % Immature Granulocyte % (Auto) 0.3 % Immature Granulocyte # (Auto) 0.04 K/uL Sodium Level 141 mmol/L Potassium Level 4.2 mmol/L Chloride Level 109 mmol/L Carbon Dioxide Level 23 mmol/L Anion Gap 9.0 mmol/L Blood Urea Nitrogen 7 mg/dl Creatinine 0.91 mg/dl Est Creatinine Clear Calc Drug Dose 73.9 ml/min Estimated GFR () 87.1 Estimated GFR (Non- 75.1 BUN/Creatinine Ratio 7.5 Random Glucose 126 mg/dl Calcium Level 8.6 mg/dl Magnesium Level 2.0 mg/dl Assessment & Plan 46 yo F admitted with severe upper abdominal pain s/p lap dayanara and lap appy on 01/10/17 1. Post-op state-POD 1, was feeling well this morning but had some dilaudid on board. Started to have significant pain and bloating as the afternoon wore on. Tramadol ineffective by itself, however, she is willing to try a regimen of Tylenol/Tramadol scheduled in lieu of Po dilaudid (mutliple intolerances of oxycodone, hydrocodone, and codeine medications in the past). She is tolerating PO. Incisions are closed and abdomen is soft. Aprpeciate surgery recs. Cont Unasyn through today and then will likely discontinue unless otherwise requested by surgery. 2. Hyperlipidemia-diet controlled 3. Leukocytosis- mild likely 2/2 inflammation vs abby-operative steroids. DVT proph: Lovenox SQ FULL CODE Dispo-to home poss tomorrow or in 2 days time. DO [facility] Hospitalist Consultants: Surgery Current Inpatient Medications: Current Inpatient Medications Medications (Trade) Dose Ordered Sig/Ian Route Start Time Stop Time Status Last Admin Dose Admin Ketorolac Tromethamine (Toradol Inj) 30 mg Q6H PRN IV 01/10/17 05:45 01/15/17 05:44 Enoxaparin Sodium (Lovenox Inj) 40 mg Q24H SQ 01/10/17 09:00 02/09/17 08:59 Future Hold Acetaminophen (Tylenol Tab) 650 mg Q4H PRN PO 01/10/17 05:45 02/09/17 05:44 Tramadol HCl (Ultram Tab) not relieved by tylenol @ Q6H PRN PO 01/10/17 05:45 02/09/17 05:44 8/4/17 09:30 50 MG Ondansetron HCl (Zofran Inj) 4 mg Q6H PRN IV 01/10/17 05:45 02/09/17 05:44 Promethazine HCl 12.5 mg/Sodium Chloride 50.5 ml @ 204 mls/hr Q6H PRN IV 01/10/17 05:45 02/09/17 05:44 Ampicillin Sodium/ Sulbactam Sodium (Consult) 1 ea UD PRN N/A 01/10/17 06:15 02/09/17 06:14 Lorazepam 0.5 mg/ Syringe 1 ml @ 1 mls/min Q4H PRN IV 01/10/17 06:45 02/09/17 06:44 Ampicillin Sodium/ Sulbactam Sodium 3000 mg/Sodium Chloride 108 ml @ 200 mls/hr Q6H IV 01/10/17 16:00 01/20/17 15:59 01/11/17 09:31 200 MLS/HR Miscellaneous Information (Check Scopolamine Patch Placement) 1 ea QS N/A 01/11/17 00:00 01/13/17 00:00 01/11/17 07:55 1 EA Miscellaneous (Remove Transderm-Scop Patch) 1 ea Q72H N/A 01/13/17 18:00 01/13/17 18:01 Oxycodone/ Acetaminophen (Percocet 5-325mg Tab) 1 tab Q4H PRN PO 01/10/17 20:00 01/24/17 19:59 Hydromorphone HCl (Dilaudid Inj) 0.5 mg Q4H PRN IV 01/11/17 01:30 01/25/17 01:29 01/11/17 10:48 0.5 MG
[2017-01-11 23:10] VITALS: BP 114/68; PULSE 78; TEMP 37; O2SAT 97
[2017-01-12] MEDS: TRAMADOL HCL 50 MG TAB PO SCH ×4 (05:15→23:39)
[2017-01-12] MEDS: ACETAMINOPHEN 500 MG TAB PO SCH ×3 (05:16→22:08)
[2017-01-12] MEDS: AMPICILLIN/SULBACTAM SOD INJ 3,000 MG in SODIUM CHLORIDE 0.9% 100ML 100 ML IV SCH ×3 (05:16→16:26)
[2017-01-12 05:57] LABS: HEMATOCRIT 31.3 % (37-47); MEAN CELL VOLUME 85.3 fL (80-100); MEAN CORPUSCULAR HEMOGLOBIN 27.2 pg (25-34); MEAN CORPUSCULAR HGB CONC 31.9 g/dl (32-36); MEAN PLATELET VOLUME 9.4 fL (7.4-10.4); PLATELET COUNT 300 K/uL (130-400); RED BLOOD COUNT 3.67 M/uL (4.2-5.4); WHITE BLOOD COUNT 8.97 K/uL (4.8-10.8)
[2017-01-12 06:21] LABS: CREATININE 0.72 mg/dl (0.60-1.20); MAGNESIUM 1.8 mg/dl (1.8-2.4); POTASSIUM 3.8 mmol/L (3.5-5.1)
[2017-01-12 06:57] VITALS: BP 127/75; PULSE 77; TEMP 36.9; O2SAT 97
[2017-01-12] MEDS: CHECK SCOPOLAMINE PATCH PLACEMENT SCH ×2 (08:00)
[2017-01-12] MEDS: ENOXAPARIN 40 MG/0.4 ML SYR SQ SCH (09:00)
[2017-01-12] MEDS: POLYETHYLENE (MIRALAX) 17 GM PACK PO SCH ×2 (13:35→20:48)
--- NOTE | 2017-01-12 14:56 | Surgery Progress Note ---
Surgery Progress Note Date of Service Jan 12, 2017. Subjective Post OP Day: 2 doing ok. still having some pain as expected. better than yesterday. Objective Vital Signs: Date Time Temp Pulse Resp B/P (MAP) Pulse Ox O2 Delivery O2 Flow Rate FiO2 01/12/17 07:35 Room Air 01/12/17 06:57 36.9 77 18 127/75 (92) 97 Room Air 01/11/17 23:39 Room Air 01/11/17 23:10 37.0 78 16 114/68 (83) 97 Room Air 01/11/17 16:15 Room Air 01/11/17 15:04 37.3 86 16 116/64 (81) 96 Room Air General Appearance: no apparent distress Abdomen: non tender, non distended, soft Incision(s): clean, dry, intact Laboratory Results: Results Past 24 Hours Test 01/12/17 05:09 Range/Units White Blood Count 8.97 4.8-10.8 K/uL Red Blood Count 3.67 4.2-5.4 M/uL Hemoglobin 10.0 12.0-16.0 g/dL Hematocrit 31.3 37-47 % Mean Corpuscular Volume 85.3 80-100 fL Mean Corpuscular Hemoglobin 27.2 25-34 pg Mean Corpuscular Hemoglobin Concent 31.9 32-36 g/dl RDW Standard Deviation 47.2 36.4-46.3 fL RDW Coefficient of Variation 15.1 11.5-14.5 % Platelet Count 300 130-400 K/uL Mean Platelet Volume 9.4 7.4-10.4 fL Sodium Level 141 136-145 mmol/L Potassium Level 3.8 3.5-5.1 mmol/L Chloride Level 108 98-107 mmol/L Carbon Dioxide Level 28 21-32 mmol/L Anion Gap 5.0 3-11 mmol/L Blood Urea Nitrogen 10 7-18 mg/dl Creatinine 0.72 0.60-1.20 mg/dl Est Creatinine Clear Calc Drug Dose 93.4 ml/min Estimated GFR () 115.6 Estimated GFR (Non- 99.7 BUN/Creatinine Ratio 14.0 10-20 Random Glucose 83 70-99 mg/dl Calcium Level 8.0 8.5-10.1 mg/dl Magnesium Level 1.8 1.8-2.4 mg/dl Assessment & Plan POD 2 lap dayanara and appy no acute surgical issues tolerating po intake ok from surgery standpoint for d/c instructions given.
[2017-01-12 15:52] VITALS: BP 130/83; PULSE 76; TEMP 37; O2SAT 94
--- NOTE | 2017-01-12 17:39 | Progress Note ---
Medicine Progress Note Date & Time of Visit: Jan 12, 2017 at 12:41. Subjective 46 yo F admitted with severe upper abdominal pain s/p lap dayanara and lap appy on 01/10/17 -tolerating PO -RLQ pain still present and significant -afebrile and no chills, denies chest pain, SOB, or other symptoms at this time -ambulatory Objective Last 8 Hrs Date Time Temp Pulse Resp B/P (MAP) Pulse Ox O2 Delivery O2 Flow Rate FiO2 01/12/17 07:35 Room Air 01/12/17 06:57 36.9 77 18 127/75 (92) 97 Room Air Physical Exam: GEN: WNWD, in no acute distress, alert and appropriate HEENT: NC/AT, PERRL, normal sclerae, MMM CARDIO: reg rate, S1/2 heard without m/g/r LUNGS: CTA bilaterally, no crackles, rales or wheezes, good diaphragmatic excursion ABD: soft, TTP in RLQ, incisions intact and closed with steristrips in place, no drainage, some expected bruising present. Non-distended, +BS EXTREMITY: RP and DP palpable 2+ bilat, no LE swelling or edema, extremities are warm and well-perfused NEURO: CN 2-12 grossly intact, sensation intact throughout MUSC: 5/5 strength throughout, no focal deficits SKIN: warm and dry and wounds as above. Laboratory Results: 01/12/17 05:09 01/12/17 05:09 Test 01/09/17 22:05 01/10/17 01:40 01/10/17 02:52 01/10/17 08:17 D-Dimer < 190 ug/L FEU (0-500) Total Bilirubin 0.3 mg/dl (0.2-1) Aspartate Amino Transf (AST/SGOT) 15 U/L (15-37) Alanine Aminotransferase (ALT/SGPT) 27 U/L (12-78) Alkaline Phosphatase 91 U/L (45-117) Total Protein 7.5 gm/dl (6.4-8.2) Albumin 3.7 gm/dl (3.4-5.0) Globulin 3.8 gm/dl (2.5-4.0) Albumin/Globulin Ratio 1.0 (0.9-2) Lipase 286 U/L (73-393) Urine Color YELLOW Urine Appearance CLEAR (CLEAR) Urine pH 5.0 (4.5-7.5) Urine Specific [place] 1.014 (1.000-1.030) Urine Protein NEG (NEG) Urine Glucose (UA) NEG (NEG) Urine Ketones NEG (NEG) Urine Occult Blood NEG (NEG) Urine Nitrite NEG (NEG) Urine Bilirubin NEG (NEG) Urine Urobilinogen NEG (NEG) Urine Leukocyte Esterase NEG (NEG) Urine Test NEG (NEG) Troponin I < 0.015 ng/ml (0-0.045) Prothrombin Time 11.0 SECONDS (9.0-12.0) Prothromb Time International Ratio 1.0 (0.9-1.1) Test 01/11/17 06:17 01/12/17 05:09 Immature Granulocyte % (Auto) 0.3 % White Blood Count 11.86 K/uL (4.8-10.8) Red Blood Count 4.13 M/uL (4.2-5.4) 3.67 M/uL (4.2-5.4) Hemoglobin 11.2 g/dL (12.0-16.0) Hematocrit 34.6 % (37-47) Mean Corpuscular Volume 83.8 fL (80-100) 85.3 fL (80-100) Mean Corpuscular Hemoglobin 27.1 pg (25-34) 27.2 pg (25-34) Mean Corpuscular Hemoglobin Concent 32.4 g/dl (32-36) 31.9 g/dl (32-36) Platelet Count 343 K/uL (130-400) Mean Platelet Volume 9.2 fL (7.4-10.4) 9.4 fL (7.4-10.4) Neutrophils (%) (Auto) 87.8 % Lymphocytes (%) (Auto) 8.1 % Monocytes (%) (Auto) 3.7 % Eosinophils (%) (Auto) 0.0 % Basophils (%) (Auto) 0.1 % Neutrophils # (Auto) 10.41 K/uL (1.4-6.5) Lymphocytes # (Auto) 0.96 K/uL (1.2-3.4) Monocytes # (Auto) 0.44 K/uL (0.11-0.59) Eosinophils # (Auto) 0.00 K/uL (0-0.5) Basophils # (Auto) 0.01 K/uL (0-0.2) Immature Granulocyte # (Auto) 0.04 K/uL (0.00-0.02) RDW Standard Deviation 47.2 fL (36.4-46.3) RDW Coefficient of Variation 15.1 % (11.5-14.5) Anion Gap 5.0 mmol/L (3-11) Est Creatinine Clear Calc Drug Dose 93.4 ml/min Estimated GFR () 115.6 Estimated GFR (Non- 99.7 BUN/Creatinine Ratio 14.0 (10-20) Calcium Level 8.0 mg/dl (8.5-10.1) Magnesium Level 1.8 mg/dl (1.8-2.4) Last 24 Hours Test 01/12/17 05:09 White Blood Count 8.97 K/uL Red Blood Count 3.67 M/uL Hemoglobin 10.0 g/dL Hematocrit 31.3 % Mean Corpuscular Volume 85.3 fL Mean Corpuscular Hemoglobin 27.2 pg Mean Corpuscular Hemoglobin Concent 31.9 g/dl RDW Standard Deviation 47.2 fL RDW Coefficient of Variation 15.1 % Platelet Count 300 K/uL Mean Platelet Volume 9.4 fL Sodium Level 141 mmol/L Potassium Level 3.8 mmol/L Chloride Level 108 mmol/L Carbon Dioxide Level 28 mmol/L Anion Gap 5.0 mmol/L Blood Urea Nitrogen 10 mg/dl Creatinine 0.72 mg/dl Est Creatinine Clear Calc Drug Dose 93.4 ml/min Estimated GFR () 115.6 Estimated GFR (Non- 99.7 BUN/Creatinine Ratio 14.0 Random Glucose 83 mg/dl Calcium Level 8.0 mg/dl Magnesium Level 1.8 mg/dl Assessment & Plan 46 yo F admitted with severe upper abdominal pain s/p lap dayanara and lap appy on 01/10/17 1. Post-op state-POD 2, starting to feel better but no BM and still requiring IV pain meds. Will discharge when stable from a pain standpoint. Unasyn stopped. Increased the frequency of the Tramadol and continued with scheduled Tylenol. She is tolerating PO. Incisions are closed and abdomen is soft. 2. Hyperlipidemia-diet controlled 3. Leukocytosis- mild likely 2/2 inflammation vs abby-operative steroids. 4. Post-operative anemia-no indication for blood transfusion at this time, no active bleeding. DVT proph: Lovenox SQ while hospitalized. FULL CODE Dispo-to home when pain controlled better, likely tomorrow. DO [facility] Hospitalist Consultants: Surgery Current Inpatient Medications: Current Inpatient Medications Medications (Trade) Dose Ordered Sig/Ian Route Start Time Stop Time Status Last Admin Dose Admin Ketorolac Tromethamine (Toradol Inj) 30 mg Q6H PRN IV 01/10/17 05:45 01/15/17 05:44 Ondansetron HCl (Zofran Inj) 4 mg Q6H PRN IV 01/10/17 05:45 02/09/17 05:44 Promethazine HCl 12.5 mg/Sodium Chloride 50.5 ml @ 204 mls/hr Q6H PRN IV 01/10/17 05:45 02/09/17 05:44 Ampicillin Sodium/ Sulbactam Sodium (Consult) 1 ea UD PRN N/A 01/10/17 06:15 02/09/17 06:14 Lorazepam 0.5 mg/ Syringe 1 ml @ 1 mls/min Q4H PRN IV 01/10/17 06:45 02/09/17 06:44 Ampicillin Sodium/ Sulbactam Sodium 3000 mg/Sodium Chloride 108 ml @ 200 mls/hr Q6H IV 01/10/17 16:00 01/20/17 15:59 01/12/17 10:07 200 MLS/HR Hydromorphone HCl (Dilaudid Inj) 0.5 mg Q4H PRN IV 01/11/17 01:30 01/25/17 01:29 01/11/17 16:12 0.5 MG Acetaminophen (Tylenol Tab) 1,000 mg Q8 PO 01/11/17 16:00 02/10/17 15:59 01/12/17 05:16 1,000 MG Enoxaparin Sodium (Lovenox Inj) 40 mg QAM SQ 01/12/17 09:00 02/11/17 08:59 01/12/17 09:00 40 MG Tramadol HCl (Ultram Tab) 50 mg Q6H PO 01/12/17 12:37 02/10/17 15:59 UNV Polyethylene (Miralax Powder Packet) 17 gm BID PO 01/12/17 12:45 02/11/17 12:44 UNV
[2017-01-12 23:14] VITALS: BP 134/79; PULSE 74; TEMP 36.8; O2SAT 95
[2017-01-13] MEDS: TRAMADOL HCL 50 MG TAB PO SCH ×2 (05:26→11:51)
[2017-01-13] MEDS: ACETAMINOPHEN 500 MG TAB PO SCH (05:27)
[2017-01-13 07:42] VITALS: BP 137/90; PULSE 70; TEMP 37.1; O2SAT 96
[2017-01-13] MEDS: POLYETHYLENE (MIRALAX) 17 GM PACK PO SCH (08:50)
[2017-01-13] MEDS: ENOXAPARIN 40 MG/0.4 ML SYR SQ SCH (08:52)
--- NOTE | 2017-01-13 09:33 | Surgery Progress Note ---
Surgery Progress Note Date of Service Jan 13, 2017. Subjective pt doing ok /would like to go home. only complaint is constipation. Objective Vital Signs: Date Time Temp Pulse Resp B/P (MAP) Pulse Ox O2 Delivery O2 Flow Rate FiO2 01/13/17 07:42 37.1 70 16 137/90 (106) 96 Room Air 01/12/17 23:30 Room Air 01/12/17 23:14 36.8 74 16 134/79 (97) 95 Room Air 01/12/17 16:00 Room Air 01/12/17 15:52 37.0 76 16 130/83 (99) 94 Room Air General Appearance: no apparent distress Respiratory/Chest: no respiratory distress, no accessory muscle use Abdomen: non tender, non distended, soft Incision(s): clean, dry Assessment & Plan 01/13/17 ok for d/c from surgical standpoint discussed miralax and glycerin supp at home for constipation instructions given 01/12/17 POD 2 lap dayanara and appy no acute surgical issues tolerating po intake ok from surgery standpoint for d/c instructions given. POD 2 lap dayanara and appy no acute surgical issues tolerating po intake ok from surgery standpoint for d/c instructions given.
[2017-01-13] MEDS ORDERED: ACET-1222 PO (11:13)
[2017-01-13] MEDS ORDERED: ULT50X PO (11:13)
[2017-01-13] MEDS ORDERED: BISA10SU3 PR (12:11)
--- NOTE | 2017-01-13 12:12 | Discharge Summary ---
Discharge Summary Date of Service Jan 13, 2017. Discharge Summary Admission Date: Jan 10, 2017 at 05:27 Discharge Date: Jan 13, 2017 Discharge Disposition: Home Principal Diagnosis: abdominal pain s/p lap dayanara and lap appy Procedures: lap appy/lap dayanara Vaccinations: none. Consultations: Surgery Pending Studies/Follow-Up: see instructions below. Medication Reconciliation New Medications: Acetaminophen (Acetaminophen Extra Stren) 500 Mg Tab 1000 MG PO Q8H PRN for Pain for 10 Days, #60 TAB Bisacodyl (Dulcolax) 10 Mg Sup 1 SUPP [place] DAILY PRN for Constipation for 5 Days, #5 SUPP Tramadol HCl (Tramadol HCl) 50 Mg Tab 50 MG PO Q6H PRN for Pain for 10 Days, #40 TAB Continued Medications: Ibuprofen (Advil) 200 Mg Tab 400-600 MG PO Q6HR PRN PRN for Pain, 0 Refills Admission Information HPI (per Admitting provider): HISTORY OF PRESENT ILLNESS: History obtained from patient and records. Medical history is significant for hyperlipidemia. Recent confinement last 2011 for kidney stones. Last night, the patient had achy right-sided abdominal pain going to her chest and back with some nausea and some shortness of breath. No fever, no chills. No previous episodes. She just had spaghett for dinner. Physical Exam (per Admitting): PHYSICAL EXAMINATION: VITAL SIGNS: Blood pressure was noted to be 125/77, pulse rate 84, RR 16, temperature 36.5 and sats 98 on room air. GENERAL: Slightly uncomfortable, in no respiratory distress and obese. She looks younger than stated age. SKIN: Normal color. HEENT: [place] palpebral conjunctivae. Dry mucosa. NECK: Short neck. LUNGS: Decreased breath sounds. HEART: RRR ABDOMEN: Right-sided upper and lower abdominal tenderness. EXTREMITIES: No edema. No tenderness. NEUROLOGIC: No gross focality. Hospital Course She was admitted to the medicine service and Surgery was consulted as her CT a/ p revealed some thickening of her gallbladder wall and a concern for acute cholecystitis. Unasyn was started and given abby-operatively. She was taken to surgery and underwent a laparoscopic cholecystectomy and appendectomy. She had no post-operative complications and her diet was advanced over the next couple of days. On day of discharge she was afebrile and hemodynamically stable and was feeling well enough to go home. She was ambulatory and physical exam was unremarkable aside from well-healing incision sites on her abdomen. She was discharged in stable condition. Total time spent on discharge = 60 minutes This includes examination of the patient, discharge planning, medication reconciliation, and communication with other providers. Discharge Instructions [facility] [address] [place] [address] Discharge Surgical Patient Name: Saskia Rodriguez Unit Number: [id number] Date of : 1970 Patient Status: Admitted Inpatient Attending Doctor: Jasmin Mendosa DO Discharge Instructions Date of Service Jan 11, 2017. Admission Reason for Admission: Cholecystitis Discharge Discharge Diagnosis / Problem: Same Discharge Goals Goal(s): Decrease discomfort, Improve function Activity Recommendations Activity Limitations: as noted below -You have Steri-strips (small white bandaids) in place, which will fall off on their own over time. If there are larger dressings over these, you may remove them in 24 hours. -After dressings are removed, you may shower. Do not scrub over the incisions - just wash gently with warm, soapy water. Do not soak, as in a bathtub or swimming pool -No lifting more than 20 lbs for 2 to 4 weeks -Do not drive until you are no longer taking narcotic pain medications and are completely pain free . Instructions / Follow-Up Instructions / Follow-Up -Please call to make a follow up appointment with Dr. Gregory in approximately 2 weeks Current Hospital Diet Patient's current hospital diet: Regular Diet Discharge Diet Recommended Diet: Regular Diet Procedures Procedures Performed: Laparoscopic Cholecystectomy, Laparoscopic Appendectomy Pending Studies Studies pending at discharge: yes List of pending studies: Gallbladder pathology - will be discussed at follow up appointment Medical Emergencies . Who to Call and When: Medical Emergencies: If at any time you feel your situation is an emergency, please call 911 immediately. . Non-Emergent Contact Non-Emergency issues call your: Primary Care Provider, Surgeon Call Non-Emergent contact if: temperature is above 101, your pain is not controlled, your pain is worsening, wound has increased drainage, wound has increased redness, wound has increased pain . "Provider Documentation" section prepared by Kavitha Lyles. . VTE Core Measure Inpt VTE Proph given/why not?: Enoxaparin (Lovenox)SQ, SCD's [place] Drug Monitoring Program Search Results: patient reviewed within database, no issues identified Addendum: Jasmin Mendosa DO on 01/13/17 @ 11:17 Discharge Inst - Addendum Addendum Notes: ADDITIONAL PROVIDER INSTRUCTIONS: 1. Please take all medications as instructed. 2. You have a follow-up appointment with Dr. Austin on 01/17 @ 10:45am for follow-up from this hospitalization. Please bring all paperwork from discharge and arrive 15 minutes early. 3. Please follow-up with General Surgery office as instructed above and comply with all post-operative instructions as given. It was a pleasure taking care of you! Call if you have any questions or problems. You can reach a [facility] hospitalist on duty at [facility] 24 hours a day by calling [phone]. Take care of yourself. Jasmin Mendosa DO [facility] Hospitalist Addendum Provider: Addendum Notes were documented by provider Jasmin Mendosa. Additional Copies To Dakota Gregory M.D.; Anastacio Austin M.D.
[2017-01-13 12:13] VITALS: BP 137/90; PULSE 70; TEMP 37.1; O2SAT 96
--- NOTE | 2017-01-29 08:01 | EDITING REQUIRED CODING QUERY ---
PATHOLOGY To promote full compliance with coding requirements relating to patient care, physician participation is requested in all cases of bulldogger uncertainty. Please assist us with the question(s) below: Please review the Pathology report and please document if there is a significant diagnosis for the leukocytosis: Diagnosis(es): cholecystitis (K81.9) Thank you Yuliya Aly
== END 2017-01-13 12:50 | disposition home or self-care (01) | DRG 419 ==
LOC: C.EDB 21:47 → C.MSW 01-10 05:27 → ENRESERV 01-10 05:44
PROVIDERS: ADMIT Internal Medicine; ATTEND Hospitalist
PROC: 0FT44ZZ Resection of Gallbladder, Percutaneous Endoscopic Approach (ICD-10-PCS; principal; 2017-01-10 16:00)
PROC: 0DTJ4ZZ Resection of Appendix, Percutaneous Endoscopic Approach (ICD-10-PCS; principal; 2017-01-10 16:00)
DX: K80.10 Calculus of gallbladder with chronic cholecystitis without obstruction (principal); E78.5 Hyperlipidemia, unspecified; Z87.442 Personal history of urinary calculi; Z82.49 Family history of ischemic heart disease and other diseases of the circulatory system; T38.0X5A Adverse effect of glucocorticoids and synthetic analogues, initial encounter